=== PATIENT | female | born 1960 | race Asian ===

== ENCOUNTER 2019-01-22 17:41 | Emergency (ER) | payer SELFPAY ==
[2019-01-22 17:58] VITALS: BP 123/65; PULSE 56; TEMP 37.1; O2SAT 99
--- NOTE | 2019-01-22 18:30 | DI.RAD.S_ITS ---
PROCEDURE: XR KNEE RT 3V INDICATIONS: fall, knee pain and unable to ambulate TECHNIQUE: 3 views of the knee were acquired. COMPARISON: None. FINDINGS: Bones: No fractures or dislocations. No suspicious bony lesions. Tiny osteophytes. Soft tissues: Moderate-sized suprapatellar joint effusion. No suspicious soft tissue calcifications. IMPRESSION: No fracture dislocation. Moderate-sized joint effusion. Dictated by: Sudhakar Coon M.D. on 01/22/2019 at 19:02 Approved by: Sudhakar Coon M.D. on 01/22/2019 at 19:03
--- NOTE | 2019-01-22 18:49 | ED.FALL ---
HPI - Fall General Chief Complaint: Fall Stated Complaint: Fell hiking Time Seen by Provider: 01/22/19 18:10 Source: patient Mode of arrival: EMS Limitations: no limitations History of Present Illness HPI Narrative: 59-year-old female here for evaluation of right knee injury. Patient states she was hiking when she fell on her knee. She also twisted it this time. Not exactly sure how she landed. He has had pain in it since that time. Trouble with walking. Is brought in by EMS. Received pain medication prior to arrival. Review of Systems Constitutional Constitutional: Denies fever(s) Cardiovascular Cardiovascular: Denies chest pain and Denies dyspnea Respiratory Respiratory: Denies dyspnea Gastrointestinal Gastrointestinal: Denies abdominal pain Musculoskeletal Comments: Right knee pain Integumentary/Breasts Skin/Breast: Denies rash Neurologic Neurologic: Denies behavioral changes Psychiatric Psychiatric: Denies behavioral changes Hematologic/Lymphatic Hematologic/Lymphatic: Denies easy bleeding and Denies easy bruising Patient History Medical History Patient denies medical problems (Acute) Social History marital status: lives independently: Yes Exam Initial Vital Signs Initial Vital Signs: Vital Signs Temperature 98.7 F 01/22/19 17:58 Pulse Rate 56 L 01/22/19 17:58 Blood Pressure 123/65 01/22/19 17:58 Pulse Oximetry 99 01/22/19 17:58 Const General: cooperative, comfortable and well developed Orientation: alert and awake HENCA Head: normal to inspection and normocephalic Resp Effort & Inspection: normal respiratory effort Cardio Pulses: radial pulses present on the right Skin Lesions: no lesions Rashes: no rashes Neuro General: alert and awake Cognition: normal cognition Speech: speech normal Extrem General: normal to inspection and capillary refill normal Other: Tenderness to palpation along the lateral aspect and posterior aspect of the right knee. Medial aspect unremarkable. Patient able to do straight leg raise. Able to bend the knee but does have some tenderness. Has a mild effusion on exam. Right hip and right ankle unremarkable. Psych Appearance: grossly normal and well kempt Procedures Orthopedic Splinting/Casting Injury #1: Side: right Lower Extremity Injury Location: knee Lower Extremity Immobilizer: Mohinder wrap Other Orthopedic Equipment: crutches Post splinting neuro exam: intact Post splinting vascular exam: intact Placed by: Nursing Course Orders Ordered: ED Orders 01/22/19 18:30 XR knee RT 3V Stat Vital Signs Vital signs: Vital Signs - 8 hr 01/22/19 17:58 Temperature 98.7 F Pulse Rate 56 L Blood Pressure [Right Arm] 123/65 Pulse Oximetry 99 MDM - Fall Imaging Data X-ray knee: Radiologist's impression: [address] [address] XRay Report Signed Patient: Fadumo Lovett#: [id number] : 1960Acct:[id number] Age/Sex: 59 / FDate of Service: 01/22/19 Loc: ED Accession Number: [id number] Procedure: XR knee RT 3V Ordering Provider: Dayton Welch D.O. PROCEDURE: XR KNEE RT 3V INDICATIONS: fall, knee pain and unable to ambulate TECHNIQUE: 3 views of the knee were acquired. COMPARISON: None. FINDINGS: Bones: No fractures or dislocations. No suspicious bony lesions. Tiny osteophytes. Soft tissues: Moderate-sized suprapatellar joint effusion. No suspicious soft tissue calcifications. IMPRESSION: No fracture dislocation. Moderate-sized joint effusion. Dictated by: Sudhakar Coon M.D. on 01/22/2019 at 19:02 Approved by: Sudhakar Coon M.D. on 01/22/2019 at 19:03 [facility] Narrative Medical decision making narrative: Patient is neurovascularly intact. Knee x-ray shows no fractures with does have an effusion. I do suspect potential soft tissue injury. Patient is neurovascularly intact. No fevers. She was given crutches and an Mohinder bandage for comfort. Did discuss that if her symptoms do not improve that she should follow up with her primary doctor for potential further imaging to include an MRI. Expressed understanding and agreement with plan. Discharge Plan Departure Patient Disposition: Home Clinical Impression: Right knee injury Qualifiers: Encounter type: initial encounter Qualified Code(s): S89.91XA - Unspecified injury of right lower leg, initial encounter Discharge Date/Time: 01/22/19 19:24 Instructions: How to Use Crutches, How To Perform RICE (Rest, Ice, Compress, Elevate), How to Apply an Elastic Wrap on Knee Activity Restrictions/Additional Instructions: Recommend that you take Tylenol and/or ibuprofen for any discomfort. Use the crutches as needed. You can walk on your right leg as tolerated. Contact your primary provider for follow-up. Return to the emergency department for any new or worsening symptoms
== END 2019-01-22 19:24 | disposition home or self-care (01) ==
PROVIDERS: Emergency Provider Emergency Medicine
DX: S89.91XA Unspecified injury of right lower leg, initial encounter (principal); W18.30XA Fall on same level, unspecified, initial encounter; Y93.01 Activity, walking, marching and hiking
CPT/HCPCS: 73562; 99283